=== PATIENT | female | born 1965 | race Caucasian/White ===

== ENCOUNTER → 2016-12-04 | Outpatient (CLI) | payer BC | LOC: FIMAGING 14:45 | PROVIDERS: ATTEND Physician Assistant | DX: Z12.31 Encounter for screening mammogram for malignant neoplasm of breast (principal) | CPT/HCPCS: G0202 ==

== ENCOUNTER → 2016-12-26 | Outpatient (CLI) | payer BC | LOC: FIMAGING 14:53 | PROVIDERS: ATTEND Physician Assistant | DX: Z12.39 Encounter for other screening for malignant neoplasm of breast (principal); N63 Unspecified lump in breast | CPT/HCPCS: G0206 ==

== ENCOUNTER → 2017-11-18 | Outpatient (CLI) | payer BC | DX: Z12.31 Encounter for screening mammogram for malignant neoplasm of breast (principal) ==

== ENCOUNTER → 2017-12-11 | Day surgery (SDC) | payer BC ==
[~2017-12-11] MED LIST: BUPIVACAINE 0.5% 30 ML SDV ONE; LIDOCAINE 1% 300 MG/30 ML SDV ONE; THROMBIN (BOVINE) 5,000 UNIT VIAL TP ONE
== END ==
LOC: FIMAGING 07:22
PROVIDERS: ATTEND Radiology Diagnostic Radiology
PROC: BH01ZZZ Plain Radiography of Left Breast (ICD-10-PCS; principal; 2017-12-11)
PROC: 0HBU3ZX Excision of Left Breast, Percutaneous Approach, Diagnostic (ICD-10-PCS; principal; 2017-12-11)
DX: N60.82 Other benign mammary dysplasias of left breast (principal)

== ENCOUNTER → 2018-05-14 | Outpatient (CLI) | payer BC | LOC: FIMAGING 14:39 | PROVIDERS: ATTEND Physician Assistant | DX: N60.82 Other benign mammary dysplasias of left breast (principal) ==